=== PATIENT | male | born 1945 | race Caucasian/White ===

== ENCOUNTER 2019-05-05 11:38 | Emergency (ER) | payer MEDICARE ==
[~2019-05-05] VITALS: Ht 175.3 cm; Wt 72.5 kg
[2019-05-05 12:07] LABS: BASOPHILS % (AUTO) 0.4 % (0-1); EOSINOPHILS # (AUTO) 0.2 X10'3 (0-0.9); EOSINOPHILS % (AUTO) 3.5 % (0-6); HEMATOCRIT 41.8 % (42.0-52.0); HEMOGLOBIN 14.4 g/dl (14.0-17.9); LYMPHOCYTES # (AUTO) 1.5 X10'3 (1.1-4.8); LYMPHOCYTES % (AUTO) 24.2 % (21-51); MEAN CORPUSCULAR HEMOGLOBIN 29.7 PG (27.0-31.0); MEAN CORPUSCULAR HGB CONC 34.4 g/dL (33.0-36.5); MEAN CORPUSCULAR VOLUME 86.5 FL (78-98); MEAN PLATELET VOLUME 8.3 FL (7.4-10.4); MONOCYTES # (AUTO) 0.6 X10'3 (0-0.9); MONOCYTES % (AUTO) 8.9 % (2-12); PLATELET COUNT 190 X10'3 (140-440); RED BLOOD COUNT 4.83 X10'6 (4.70-6.10); WHITE BLOOD COUNT 6.3 X10'3 (4.5-11.0)
[2019-05-05 12:22] LABS: ALANINE AMINOTRANSFERASE 26 U/L (12-78); ALBUMIN 3.8 G/DL (3.4-5.0); ALKALINE PHOSPHATASE 71 IU/L (46-116); ANION GAP 6 (8-16); ASPARTATE AMINO TRANSFERASE 16 U/L (10-37); BILIRUBIN,TOTAL 0.3 MG/DL (0.1-1.0); BLOOD UREA NITROGEN 15 MG/DL (7-18); BUN/CREATININE RATIO 12.9 (5.4-32.0); CALCIUM 8.9 MG/DL (8.5-10.1); CHLORIDE 107 MMOL/L (99-107); CREATININE 1.16 MG/DL (0.60-1.10); GLUCOSE 95 MG/DL (70-104); POTASSIUM 4.2 MMOL/L (3.5-5.1); SODIUM 141 MMOL/L (135-145); TOTAL CARBON DIOXIDE 27.7 MMOL/L (24-32); TOTAL PROTEIN 7.8 G/DL (6.4-8.2); eGFR 62 ML/MIN
[2019-05-05 12:24] VITALS: BP 155/102
== END 2019-05-05 13:44 | disposition home or self-care (01) ==
LOC: ER 11:40
DX: R07.89 Other chest pain (principal); Z98.890 Other specified postprocedural states; Z88.8 Allergy status to other drugs, medicaments and biological substances
CPT/HCPCS: 36415; 71045; 80053; 84484; 85025; 93005; 99284

== ENCOUNTER 2021-01-04 08:16 | Emergency (ER) | payer MEDICARE ==
[~2021-01-04] VITALS: Ht 175.3 cm; Wt 81.9 kg
[2021-01-04 08:48] LABS: BASOPHILS % (AUTO) 0.5 % (0-1); EOSINOPHILS # (AUTO) 0.6 X10'3 (0-0.9); EOSINOPHILS % (AUTO) 7.6 % (0-6); HEMATOCRIT 49.3 % (42.0-52.0); LYMPHOCYTES % (AUTO) 25.8 % (21-51); MEAN CORPUSCULAR HEMOGLOBIN 30.5 PG (27.0-31.0); MEAN CORPUSCULAR HGB CONC 34.4 g/dL (33.0-36.5); MEAN CORPUSCULAR VOLUME 88.7 FL (78-98); MEAN PLATELET VOLUME 8.6 FL (7.4-10.4); MONOCYTES # (AUTO) 0.5 X10'3 (0-0.9); MONOCYTES % (AUTO) 6.9 % (2-12); NEUTROPHILS # (AUTO) 4.5 X10'3 (1.8-7.7); NEUTROPHILS % (AUTO) 59.2 % (42-75); PLATELET COUNT 147 X10'3 (140-440); RED BLOOD COUNT 5.56 X10'6 (4.70-6.10); RED CELL DISTRIBUTION WIDTH 13.3 % (11.5-14.5); WHITE BLOOD COUNT 7.7 X10'3 (4.5-11.0)
[2021-01-04 08:59] LABS: PARTIAL THROMBOPLASTIN TIME 31 SECONDS (22-32)
[2021-01-04 09:00] LABS: ALANINE AMINOTRANSFERASE 25 U/L (12-78); ALBUMIN 3.8 G/DL (3.4-5.0); ALKALINE PHOSPHATASE 58 IU/L (46-116); ANION GAP 12 (8-16); ASPARTATE AMINO TRANSFERASE 20 U/L (10-37); BILIRUBIN,TOTAL 0.4 MG/DL (0.1-1.0); BLOOD UREA NITROGEN 14 MG/DL (7-18); BUN/CREATININE RATIO 11.9 (5.4-32.0); CALCIUM 8.5 MG/DL (8.5-10.1); CHLORIDE 104 MMOL/L (99-107); CREATININE 1.18 MG/DL (0.60-1.10); GLUCOSE 97 MG/DL (70-104); POTASSIUM 3.9 MMOL/L (3.5-5.1); SODIUM 140 MMOL/L (135-145); TOTAL CARBON DIOXIDE 24.1 MMOL/L (24-32); TOTAL PROTEIN 7.7 G/DL (6.4-8.2); eGFR 60 ML/MIN
[2021-01-04 09:04] LABS: TROPONIN I < 0.04 NG/ML (0.0-0.05)
[2021-01-04] MEDS ORDERED: acetaminophen 325mg tablet PO ONE (09:45)
[2021-01-04] MEDS ORDERED: aspirin 81mg tab.chew PO ONE (09:45)
[2021-01-04 10:16] VITALS: BP 99/51
[2021-01-04] MEDS ORDERED: iohexol 350MG/ML 100ml bottle IV ONE (10:20)
[2021-01-04] MEDS ORDERED: FLO0.4C (10:41)
[2021-01-04] MEDS ORDERED: PRED20TA PO (10:58)
[2021-01-04] MEDS ORDERED: VALA100031 PO (10:58)
== END 2021-01-04 11:17 | disposition home or self-care (01) ==
LOC: ER 08:17
DX: G51.0 Bell's palsy (principal); M54.2 Cervicalgia; Z98.890 Other specified postprocedural states; Z88.8 Allergy status to other drugs, medicaments and biological substances; Z79.2 Long term (current) use of antibiotics; Z79.899 Other long term (current) drug therapy
CPT/HCPCS: 36415; 70450; 70496; 70498; 71045; 80053; 84484; 85025; 85610; 85730; 93005; 99285; Q9967

== ENCOUNTER 2022-05-23 12:03 | Day surgery (SDC) | payer MEDICARE ==
[~2022-05-23] VITALS: Ht 175.3 cm; Wt 80.0 kg
[~2022-05-23 12:03] MED LIST: FLO0.4C; VALA100031 PO
[2022-05-23 12:15] VITALS: BP 156/102
[2022-05-23] MEDS ORDERED: FENTANYL CITRATE/PF 50 MCG/1 ML VIAL ONE (12:17)
[2022-05-23] MEDS ORDERED: MIDAZolam 1 MG/ML 5ML VIAL ONE (12:17)
[2022-05-23] MEDS ORDERED: MAGN500C4 PO (12:19)
[2022-05-23] MEDS ORDERED: CA ZINC (12:20)
[2022-05-23] MEDS ORDERED: GLUC-221 (12:22)
[2022-05-23] MEDS ORDERED: MULT-1085 PO (12:22)
[2022-05-23] MEDS ORDERED: LUTE1CAP5 PO (12:23)
[2022-05-23 13:14] VITALS: BP 155/88
[2022-05-23 13:24] VITALS: BP 137/76
[2022-05-23 13:34] VITALS: BP 144/75
[2022-05-23 13:44] VITALS: BP 137/78
== END 2022-05-23 13:50 | disposition home or self-care (01) ==
LOC: GI LAB 12:03
PROVIDERS: ATTEND Internal Medicine Gastroenterology
DX: K21.00 Gastro-esophageal reflux disease with esophagitis, without bleeding (principal); K29.50 Unspecified chronic gastritis without bleeding; K25.9 Gastric ulcer, unspecified as acute or chronic, without hemorrhage or perforation; K22.2 Esophageal obstruction; K44.9 Diaphragmatic hernia without obstruction or gangrene; K31.7 Polyp of stomach and duodenum
CPT/HCPCS: 43239; 43450; J2250; J3010; J7030; Z7512; 99152; A4620

== ENCOUNTER 2023-02-12 05:38 | Day surgery (SDC) | payer MEDICARE ==
[2023-02-07 15:49] LABS: BASOPHILS % (AUTO) 0.3 % (0-1); EOSINOPHILS # (AUTO) 0.3 X10'3 (0-0.9); EOSINOPHILS % (AUTO) 3.6 % (0-6); LYMPHOCYTES % (AUTO) 27.2 % (21-51); MEAN CORPUSCULAR HEMOGLOBIN 29.9 PG (27.0-31.0); MEAN CORPUSCULAR HGB CONC 34.1 g/dL (33.0-36.5); MEAN CORPUSCULAR VOLUME 87.7 FL (78-98); MEAN PLATELET VOLUME 8.7 FL (7.4-10.4); MONOCYTES # (AUTO) 0.6 X10'3 (0-0.9); MONOCYTES % (AUTO) 7.6 % (2-12); NEUTROPHILS # (AUTO) 4.4 X10'3 (1.8-7.7); NEUTROPHILS % (AUTO) 61.3 % (42-75); PRE OP HEMATOCRIT 43.4 % (42.0-52.0); PRE OP HEMOGLOBIN 14.8 g/dL (14.0-17.9); PRE OP PLATELET COUNT 172 X10'3 (140-440); PRE OP WHITE BLOOD COUNT 7.2 10'3 (4.8-10.8); RED BLOOD COUNT 4.95 X10'6 (4.70-6.10)
[2023-02-07 15:54] LABS: BILIRUBIN,URINE NEGATIVE (Neg); CLARITY,URINE CLEAR (Clear); COLOR,URINE YELLOW (Yellow); GLUCOSE, URINE NEGATIVE (Neg); KETONES,URINE NEGATIVE (Neg); LEUKOCYTE ESTERASE ,URINE NEGATIVE (Neg); NITRITES, URINE NEGATIVE (Neg); OCCULT BLOOD,URINE NEGATIVE (Neg); PROTEIN,URINE NEGATIVE (Neg); UROBILINOGEN,URINE 0.2 E.U/dL (0.2-1.0)
[2023-02-07 15:55] LABS: UA COLLECTION TYPE CLN CATCH MIDSTREAM
[2023-02-07 16:11] LABS: ALBUMIN 3.8 G/DL (3.4-5.0); ALBUMIN/GLOBULIN RATIO 1.1 (1.1-1.5); ALKALINE PHOSPHATASE 66 IU/L (46-116); BLOOD UREA NITROGEN 23 MG/DL (7-18); CHLORIDE 104 MMOL/L (99-107); CREATININE 1.28 MG/DL (0.60-1.10); PRE OP ALT 20 U/L (30-65); PRE OP ANION GAP 7 (8-16); PRE OP AST 15 U/L (10-37); PRE OP BILIRUB, TOTAL 0.3 MG/DL (0.0-1.0); PRE OP GLUCOSE 96 MG/DL (70-104); PRE OP POTASSIUM 4.1 MMOL/L (3.4-5.1); PRE OP SODIUM 140 MMOL/L (135-145); TOTAL CARBON DIOXIDE 28.8 MMOL/L (24-32); TOTAL PROTEIN 7.4 G/DL (6.4-8.2); eGFR 54 ML/MIN
[2023-02-12] VITALS (24 sets, daily range): BP systolic 144–188; BP diastolic 72–111; PULSE 50–77; RESP 11–18; TEMP 98.1; O2SAT 91–99
[~2023-02-12] VITALS: Ht 175.3 cm; Wt 81.1 kg
[~2023-02-12 05:38] MED LIST changes: +GLUC-221; +LUTE1CAP5 PO; +MELO-100 PO; +MULT-1085 PO; -VALA100031 PO; +cefazolin 2gm/D5W 100mL 100 ML IV ONE; +famotidine 20mg tablet PO ONE; +ringers solution, lacted 1,000 ML IV SCH
[2023-02-12] MEDS ORDERED: BUPIVAcaine/PF 2.5 mg/ml (0.25%) 30ml vial ONE (06:52)
[2023-02-12] MEDS ORDERED: midazolam 1 mg/ML 2ml injection ONE (07:30)
[2023-02-12] MEDS ORDERED: fentaNYL/PF 50MCG/1 ML 2ML syringe ONE (07:30)
[2023-02-12] MEDS ORDERED: rocuronium 10mg/ml inj IV ONE (07:30)
[2023-02-12] MEDS ORDERED: propofol inj 20 ML IV ONE (07:30)
[2023-02-12] MEDS ORDERED: ondansetron/PF 4mg/2ml inj IV PRN (07:35)
[2023-02-12] MEDS ORDERED: proCHLORperazine 10 MG/2 ml inj IV PRN (07:35)
[2023-02-12] MEDS ORDERED: meperidine/PF 25mg/ml syringe IV PRN ×3 (07:35)
[2023-02-12] MEDS ORDERED: morphine 4 MG/ML inj SYRINge IV PRN (07:35)
[2023-02-12] MEDS ORDERED: ringers solution, lacted 1,000 ML IV SCH (07:35)
[2023-02-12] MEDS ORDERED: morphine 2 MG/ML inj. syringe IV PRN (07:35)
[2023-02-12] MEDS ORDERED: sevoflurane 250ml liquid IH ONE (07:36)
[2023-02-12] MEDS ORDERED: glycopyrrolate 0.2mg/ml inj ONE (07:36)
[2023-02-12] MEDS ORDERED: ondansetron/PF 4mg/2ml inj ONE (08:17)
[2023-02-12] MEDS ORDERED: dexamethasone sod phosphate 4mg/ml inj. ONE (08:17)
[2023-02-12] MEDS ORDERED: acetaminophen 1,000mg/100ml IV 100 ML IV ONE (08:17)
[2023-02-12] MEDS ORDERED: labetalol 20mg/4ml (5mg/ml) syringe IV ONE (08:19)
[2023-02-12] MEDS ORDERED: neostigmine methylsulfate 1 MG/ML 10ml vial ONE (08:55)
--- NOTE | 2023-02-12 09:07 | NUR ---
Received from OR via [facility] TO RR 5, accompanied by Anesthesiologist FABY and report given by Anesthesiolgist. PT PRESENTED ON 7L VIA MASK WITH SPO2 98%. BP 180/104; MD HOBBS IN ROOM AND MEDICATED APPROPIATELY. BILATERAL RADIAL PULSES PALPABLE, TOTAL OF 4 ABD DRESSINGS CDI. SCD'S ARE ON. WILL CONTINUE TO ASSESS
--- NOTE | 2023-02-12 09:10 | NUR ---
PATIENT WAS ABLE TO USE THE URINAL SUCCESSFULLY. SMALL VOID.
[2023-02-12] MEDS ORDERED: HYDROcodone/acetaminophen 10/325mg tab PO ONE (10:45)
--- NOTE | 2023-02-12 11:17 | NUR ---
PT STABLE FOR D/C PER MD ORDERS. VSS, ON RA WITH SPO2 AT 94%. ALL D/C PPWK WAS REV'D WITH PATIENT AND ALL QUESTIONS, COMMENTS, AND CONCERNS WERE ANSWERED AT THIS TIME. 4 LAP ABD DRESSINGS CDI. EDUCATED ON THE IMPORTANCE OF NOT HOLDING YOUR BREATH AND CONSTIPATION CONCERNS. PT VERBALIZED UNDERSTANDING. PT WAS ABLE TO TRANSFER TO W/C WITH MINIMAL ASSISTANCE. PT TAKEN TO PRIVATE VEHICLE WHERE FAMILY WAS WAITING. PT WAS TRANSFERRED INTO VEHICLE WITHOUT INCIDENT.
== END 2023-02-12 11:17 | disposition home or self-care (01) ==
LOC: PAS 05:38
PROVIDERS: ATTEND Surgery
DX: K42.9 Umbilical hernia without obstruction or gangrene (principal); G51.0 Bell's palsy; I12.9 Hypertensive chronic kidney disease with stage 1 through stage 4 chronic kidney disease, or unspecified chronic kidney disease; N18.30 Chronic kidney disease, stage 3 unspecified; G47.30 Sleep apnea, unspecified; N40.0 Benign prostatic hyperplasia without lower urinary tract symptoms; M19.90 Unspecified osteoarthritis, unspecified site; Z85.828 Personal history of other malignant neoplasm of skin; Z90.49 Acquired absence of other specified parts of digestive tract; Z88.8 Allergy status to other drugs, medicaments and biological substances; Z79.899 Other long term (current) drug therapy
CPT/HCPCS: 36415; 49593; 80053; 81003; 82948; 85025; 93005; C1781; J0131; J0690; J1100; J2175; J2250; J2270; J2405; J2704; J2710; J3010; J3490; J7030; J7120; Z7506; Z7508; Z7512; A4618; A7000

== ENCOUNTER 2023-02-13 03:51 | Emergency (ER) | payer MEDICARE ==
[~2023-02-13] VITALS: Ht 175.3 cm; Wt 80.5 kg
[~2023-02-13 03:51] MED LIST changes: -cefazolin 2gm/D5W 100mL 100 ML IV ONE; -famotidine 20mg tablet PO ONE; -ringers solution, lacted 1,000 ML IV SCH
[2023-02-13 03:57] VITALS: BP 187/88; PULSE 57; RESP 16; TEMP 98.8; O2SAT 95
--- NOTE | 2023-02-13 05:07 | NUR ---
carpenter care education given to patient and spouce. family understood with return demo
== END 2023-02-13 05:15 | disposition home or self-care (01) ==
LOC: ER 03:51
DX: R33.9 Retention of urine, unspecified (principal); R10.30 Lower abdominal pain, unspecified; N40.0 Benign prostatic hyperplasia without lower urinary tract symptoms; Z88.8 Allergy status to other drugs, medicaments and biological substances; Z79.899 Other long term (current) drug therapy
CPT/HCPCS: 51702; 99284